=== PATIENT | male | born 1950 | race Caucasian/White ===

== ENCOUNTER 2018-04-20 15:53 | Inpatient (IN) | payer MEDICARE, MEDICAID ==
[2018-04-20] MEDS ORDERED: Haloperidol Lactate 5 mg/mL 1mL Vial IM STA (16:08)
[2018-04-20] MEDS ORDERED: Haloperidol Lactate 5 mg/mL 1mL Vial ONE (16:11)
--- NOTE | 2018-04-20 16:40 | ED Physician Chart ---
ED Chief Complaint/HPI - Patient Information Date Seen:: 04/20/18 Time Seen:: 16:00 Chief Complaint:: Agitation History of Present Illness:: onset x one day of agitation and combative/hostile behavior; no rreport of trauma, SIs, H/As, LOC, S/T, neck pain, C/P, SOB, Abd. Pain, A/N/V/D/C, fever, chills, or urinary s/s Allergies:: Allergies Allergy/AdvReac Type Severity Reaction Status Date / Time UNOBTN - Unobtainable Allergy Verified 04/20/18 16:23 Historian:: Patient, EMS Review:: Nurse's Note Reviewed, EMS run form Reviewed ED Review of Systems - Review of Systems General/Constitutional: No fever, No chills, No weight loss, No weakness, No diaphoresis, No edema, No loss of appetite Skin: No skin lesions, No rash, No bruising Head: No headache, No light-headedness Eyes: No loss of vision, No pain, No diplopia ENT: No earache, No nasal drainage, No sore throat, No tinnitus Neck: No neck pain, No swelling, No thyromegaly, No stiffness, No mass noted Cardio Vascular: No chest pain, No palpitations, No PND, No orthopnea, No edema Pulmonary: No SOB, No cough, No sputum, No wheezing GI: No nausea, No vomiting, No diarrhea, No pain, No melena, No hematochezia, No constipation, No hematemesis G/U: No dysuria, No frequency, No hematuria, No nacturia Musculoskeletal: No bone or joint pain, No back pain, No muscle pain Endocrine: No polyuria, No polydipsia Psychiatric: Prior psych history, No depression, Anxiety, No suicidal ideation, No homicidal ideation, No auditory hallucination, No visual hallucination Hematopoietic: No bruising, No lymphadenopathy Allergic/Immuno: No urticaria, No angioedema Neurological: No syncope, No focal symptoms, No weakness, No paresthesia, No headache, No seizure, No dizziness, No confusion, No vertigo ED Past Medical History - Past Medical History Obtainable: Yes Past Medical History: HTN Family History: HTN Social History: Smoker, Alcohol, No Drug Use, Single, Homeless Surgical History: None Psychiatricy History: Bipolar Medication: Reviewed Family Medical History - Family Member Mother History Unknown: Yes ED Physical Exam - Physical Examination General/Constitutional: Awake, Well-developed, well-nourished, Alert, No distress, GCS 15, Non-toxic appearing, Ambulatory Head: Atraumatic Eyes: Lids, conjuctiva normal, PERRL, EOMI Skin: Nl inspection, No rash, No skin lesions, No ecchymosis, Well hydrated, No lymphadenopathy ENMT: External ears, nose nl, TM canals nl, Nasal exam nl, Lips, teeth, gums nl , Oropharynx nl, Tonsils nl Neck: Nontender, Full ROM w/o pain, No JVD, No nuchal rigidity, No bruit, No mass, No stridor Respiratory: Nl effort/Exclusion, Clear to Auscultation, No Wheeze/Rhonchi/Rales Cardio Vascular: RRR, No murmur, gallop, rubs, NL S1 S2, Carotid/Femoral/Distal pulses equal bilaterally GI: No tenderness/rebounding/guarding, No organomegaly, No hernia, Normal BS's, Nondistended, No mass/bruits, No McBurney tenderness : No CVA tenderness Extremities: No tenderness or effusion, Full ROM, normal strength in all extremities, No edema, Normal digits & nails Neuro/Psych: Alert/oriented, DTR's symmetric, Normal sensory exam, Normal motor strength, Judgement/insight normal, Mood normal, Normal gait, No focal deficits Other Neuro/Psych comments:: + Psychomotor Agitation; no SIs; Mood/Affect: Labile Misc: Normal back, No paraspinal tenderness ED Labs/Radiology/EKG Results - Lab Results Comments:: unremarkable - EKG Interpretations Rate & Rhythm: NSR Comments:: non-specific st-t changes ED Septic Shock - . Is Septic Shock (SBP<90, OR Lactate>4 mmol\L) present?: No ED Reassessment (Disposition) - Reassessment Reassessment Condition:: Improved - Diagnosis Diagnosis:: Dx: Agitation; Anxiety Disorder; Psychosis; Medical Clearance; Bipolar Disorder - Aftercare/Follow up Instructions Aftercare/Follow-Up Instructions:: Counseled pt regarding lab results/diagnosis & need follow up, Counseled pt & family regarding lab results/diagnosis & need follow up - Patient Disposition Discharge/Transfer:: Acute Care w/in this hosp Admitted to:: [facility] Condition at Disposition:: Stable, Improved
[2018-04-20 17:32] LABS: % BASOPHILS 1.3 % (0.0-2.0); % LYMPHOCYTES 18.3 % (20.0-50.0); % MONOCYTES 9.3 % (2.0-10.0); % NEUTROPHILS 70.1 % (40.0-80.0); BASOPHILE ABSOLUTE 0.1 Th/cumm (0-0.2); HEMATOCRIT 37.9 % (41.0-60); HEMOGLOBIN 12.3 gm/dL (12-16); LYMPHOCYTE ABSOLUTE 0.8 Th/cmm (1.5-3.0); MEAN CELL VOLUME 83.3 fl (80-99); MEAN CORPUSCULAR HGB CONC 32.4 pg (28.0-36.0); MONOCYTE ABSOLUTE 0.4 Th/cmm (0.3-1.0); PLATELET COUNT 280 Th/cmm (150-400); RED BLOOD COUNT 4.55 Mil/cmm (3.80-5.80); RED CELL DISTRIBUTION WIDTH 13.2 % (11.5-20.0); WHITE BLOOD COUNT 4.3 Th/cmm (4.8-10.8)
[2018-04-20 17:52] LABS: ALB/GLOB RATIO 0.9 (1.0-1.8); ALBUMIN 3.9 gm/dL (4.2-5.5); ALKALINE PHOSPHATASE 104 U/L (34-104); ANION GAP 10.2 (7.0-16.0); BILIRUBIN,TOTAL 0.5 mg/dL (0.3-1.0); BUN - UREA NITROGEN 18 mg/dL (7-25); CALCIUM SERUM 9.8 mg/dL (8.6-10.3); CARBON DIOXIDE 28.6 mEq/L (21.0-31.0); CHLORIDE 104 mEq/L (98-107); CHOLESTEROL 133 mg/dL (<200); GFR AFRICAN-AMERICAN > 60.0 ml/min (>90); GFR NON AFRICAN-AMERICAN > 60.0 ml/min; GLUCOSE 92 mg/dL (70-105); HDL -HIGH DENSITY LIPOPROTEIN 37 mg/dL (23-92); POTASSIUM SERUM 3.8 mEq/L (3.5-5.1); SALICYLATES (ASPIRIN) < 25.0 mg/L (30.0-100.0); SGOT 25 U/L (13-39); SGPT/ALT 11 U/L (7-52); SODIUM SERUM 139 mEq/L (136-145); TOTAL PROTEIN,SERUM 8.1 gm/dL (6.0-8.3); TRIGLYCERIDES 124 mg/dL (<150)
[2018-04-20 17:53] LABS: ACETAMINOPHEN < 10.0 ug/mL (10.0-30.0)
[2018-04-20 19:43] LABS: A1C % 4.9 % (4.0-6.0)
[2018-04-20 23:01] VITALS: BP 94/52
[2018-04-20] MEDS ORDERED: Maalox 30 mL Cup PO PRN (23:08)
[2018-04-20] MEDS ORDERED: Magnesium Hydroxide (MOM) 30 mL UDC PO PRN (23:08)
[2018-04-21] MEDS ORDERED: Haloperidol Lactate 5 mg/mL 1mL Vial ONE (07:32)
[2018-04-21] MEDS ORDERED: Haloperidol Lactate 5 mg/mL 1mL Vial IM ONE (07:50)
[2018-04-21] MEDS: Multivitamin Tab PO SCH (09:14)
--- NOTE | 2018-04-21 23:04 | Psychiatric Evaluation ---
DATE OF SERVICE: THE PATIENT'S AGE: 67. SEX: Male. PHYSICIAN: Dr. Delatorre. CHIEF COMPLAINT: 5150 hold for dangers to self and grave disability. HISTORY OF PRESENT ILLNESS: The patient is a 67-year-old male, who was placed on a 5150 hold by the police for dangers to self and gravely disabled. The patient was pushing himself in the middle of a busy street regardless his safety. The patient also has been confused and guarded and unable to provide any safe plan for self-care. The patient has history of bipolar disorder. Apparently, the patient has not been compliant with taking his medications. PAST PSYCHIATRIC HISTORY: History of bipolar disorder. PAST MEDICAL HISTORY: The patient has history of hypertension. SOCIAL HISTORY: The patient is homeless. Unable to get more information from the patient at this time. ALLERGIES: No known allergies. MENTAL STATUS EXAMINATION: The patient appears older than stated age. Disheveled. On wheelchair. Disorganized thoughts. Guarded. Preoccupied. Unable to get much information from the patient at this time because the patient is guarded and irritable mood. ASSESSMENT: Bipolar disorder, severe, depressed episode, with psychotic features. MEDICAL DIAGNOSIS: Hypertension. TREATMENT PLAN: We will monitor the patient's behavior and condition closely. We will evaluate for starting psychotropic medications. Also, try to get more information when more cooperative. ESTIMATED LENGTH OF STAY: 5-7 days. THE PATIENT'S STRENGTHS AND WEAKNESSES: The patient's strength is not clear at this time. Weaknesses is his ineffective coping and seems like he is not compliant with taking his treatment. AFTER DISCHARGE PLAN: Outpatient treatment and followup will continue as an outpatient. CRITERIA FOR DISCHARGE: We will secure placement and also will stabilize psychotropic medications and we have safe plan for his discharge. JOB# [id number]
[2018-04-22] MEDS: Levothyroxine 0.05 Mg Tab PO SCH (06:55)
[2018-04-22] MEDS: Multivitamin Tab PO SCH (10:00)
--- NOTE | 2018-04-22 23:18 | Progress Notes ---
DATE: SUBJECTIVE: Chart reviewed and the patient interviewed. Also discussed the patient's condition with the staff and reviewed records and labs. The patient is still easily agitated and aggressive. The patient also had unpredictable behavior. Also is still angry and resisting care. Also, personal hygiene is still poor and disheveled. The patient also is guarded and does not disclose much information about himself. At the same time, the patient was supposed to start on Seroquel, but the patient refused to take Seroquel last night. ASSESSMENT: The patient is still psychotic and agitated. TREATMENT PLAN: Continue to monitor his behavior and his condition closely. Also, continue to work on his compliance with taking his medications. Also, continue to work on knowing more about the patient in order to organize discharge plans. He is still considered to be dangerous to others and self as well as gravely disabled. JOB# [id number]
[2018-04-23] MEDS: Levothyroxine 0.05 Mg Tab PO SCH (06:37)
[2018-04-23] MEDS: Multivitamin Tab PO SCH (09:17)
[2018-04-23] MEDS: Venelex 60gm Tube TP SCH (09:18)
--- NOTE | 2018-04-23 11:57 | History & Physical ---
ADMIT DATE: 04/20/2018 ADMITTING PHYSICIAN: Dr. Delatorre. REASON FOR ADMISSION: Psychiatric disorder. HISTORY OF PRESENT ILLNESS: This is a 67-year-old with underlying history of hypothyroidism, mental health disorders who was admitted for evaluation of underlying psychiatric illness by Dr. Delatorre. Dr. Delatorre requested medical H and P on this patient. The patient said that he is doing fine. Denies any complaints. PAST MEDICAL HISTORY: Hypothyroidism. PAST SURGICAL HISTORY: Denies. FAMILY HISTORY: No significant family history. SOCIAL HISTORY: No reported alcohol, tobacco or street drug use. CURRENT MEDICATIONS: Maalox, Synthroid, Ativan, milk of mag, Theragran, Seroquel, and Ambien. REVIEW OF SYSTEMS: As per HPI. Twelve-point system review appears negative. PHYSICAL EXAMINATION: VITAL SIGNS: Temperature 97.8, pulse 70, respiration 19, blood pressure 138/72, oxygen saturation 94% on room air. Pain 0/10. GENERAL APPEARANCE: The patient was sitting comfortably in the bed. HEART: S1, S2 normal. LUNGS: Clear. ABDOMEN: Soft. EXTREMITIES: No edema. Right foot superficial wound noted. No surrounding erythema noted. No discharge. LABORATORY DATA: Available lab data has been reviewed. ASSESSMENT: 1. Hypothyroidism. 2. Right foot wound. 3. Psychiatric disorder. PLAN: The patient will be continued on levothyroxine. Daily local wound care will be given. Psych evaluation and management per psychiatrist. The patient is medically stable to participate in activities at [facility]. Thank you Dr. Delatorre for allowing me to participate in the care of this patient. [facility]# [id number]
--- NOTE | 2018-04-23 20:02 | Progress Notes ---
DATE: 04/23/2018 SUBJECTIVE: Chart reviewed and the patient interviewed. Also discussed the patient's condition with the staff and reviewed records and labs. The patient is still easily agitated. The patient also is still unpredictable. The patient also minimizing the fact that he was wheeling his wheelchair in the middle of a busy street regardless his safety and the safety of others. The patient also is still angry and disheveled. When I tried to talk to the patient about placement condition, he became angry and he said that he is going to stay with a friend, but he was not able to give any more information about a friend or about where he is. At the same time, the patient started on Seroquel 50 mg twice a day with no side effects. ASSESSMENT: The patient is still psychotic and still can be dangerous to self and others. TREATMENT PLAN: Continue monitoring his behavior and his condition closely. Also, continue working on his poor impulse control and his irritability and we will continue to follow up. [facility]# [id number]
[2018-04-23 23:11] LABS: URINE BILIRUBIN NEGATIVE (NEGATIVE); URINE BLOOD LARGE (NEGATIVE); URINE GLUCOSE (UA) NEGATIVE (NEGATIVE); URINE KETONE NEGATIVE (NEGATIVE); URINE LEUKOCYTE ESTERASE LARGE (NEGATIVE); URINE MICROSCOPIC INDICATED? YES; URINE NITRATE POSITIVE (NEGATIVE); URINE PROTEIN 30 mg/dL (NEGATIVE); URINE SOURCE CLEAN C; URINE UROBILINOGEN 0.2 E.U./dL (0.2 - 1.0)
[2018-04-23 23:28] LABS: URINE CLARITY CLOUDY (CLEAR); URINE COLOR YELLOW
[2018-04-23 23:29] LABS: URINE RBC 25-50 /hpf (0-5)
[2018-04-23 23:33] LABS: URINE BACTERIA MANY /hpf (NONE SEEN); URINE EPITHELIAL CELLS FEW /lpf (FEW); URINE WBC 50-100 /hpf (0-5)
[2018-04-23 23:37] LABS: AMPHETAMINE URINE NEGATIVE (NEGATIVE); BARBITURATES URINE NEGATIVE (NEGATIVE); BENZODIAZEPINES QUAL URINE POSITIVE (NEGATIVE); CANNABINOID THC NEGATIVE (NEGATIVE); COCAINE METABOLITE QUAL URINE NEGATIVE (NEGATIVE); METHADONE URINE NEGATIVE (NEGATIVE); METHAMPHETAMINES QUAL URINE NEGATIVE (NEGATIVE); OPIATES (MORPHINE) QUAL. URINE NEGATIVE (NEGATIVE); PHENCYCLIDINE (PCP) URINE NEGATIVE (NEGATIVE); TRICYCLICS (TCA) QUAL. URINE NEGATIVE (NEGATIVE)
[2018-04-24] MEDS: Levothyroxine 0.05 Mg Tab PO SCH (06:43)
[2018-04-24] MEDS: Venelex 60gm Tube TP SCH (09:36)
[2018-04-24] MEDS: Multivitamin Tab PO SCH (09:36)
--- NOTE | 2018-04-24 23:36 | Progress Notes ---
DATE: 04/24/2018 SUBJECTIVE: Chart reviewed and the patient interviewed. Also discussed the patient's condition with the staff and reviewed records and labs. The patient continued to have unpredictable behavior and easily agitated. The patient also is still in irritable and in angry mood. The patient also is still uncooperative and he is still rambling. He also still needs lots of redirections. The patient also is still unable to give information about discharge plans and placement issue and still seems that he wants to be homeless. The patient also is refusing to take his Seroquel in the p.m. time in spite of trying to explain to the patient the importance of taking his medications. ASSESSMENT: The patient is still agitated and in irritable mood and seems to be psychotic. TREATMENT PLAN: Continue to monitor his behavior and his condition closely. Also, continue monitoring his psychotropic medications and work on discharge plans. JOB# [id number]
[2018-04-25] MEDS: Levothyroxine 0.05 Mg Tab PO SCH (06:43)
[2018-04-25] MEDS: Venelex 60gm Tube TP SCH (08:03)
[2018-04-25] MEDS: Multivitamin Tab PO SCH (08:03)
--- NOTE | 2018-04-26 03:35 | Progress Notes ---
DATE: 04/25/[address] Delatorre. SUBJECTIVE: Case was discussed with staff of the patient, reviewed records. This is a 68-year-old male who was admitted on 04/20/2018, because of agitated behavior, unpredictable and impulsive, needing redirection. Continues to have poor insight, continues to be easily agitated, angry, confused. No sedation, no nausea. No side effects with the medication and we will continue the patient in group therapy, milieu therapy, and adjust medication as needed. JOB# [id number]
[2018-04-26] MEDS: Levothyroxine 0.05 Mg Tab PO SCH (06:56)
[2018-04-26] MEDS: Multivitamin Tab PO SCH (08:13)
[2018-04-26] MEDS: Venelex 60gm Tube TP SCH (08:13)
--- NOTE | 2018-04-27 00:48 | Progress Notes ---
DATE: 04/26/[address] Delatorre. Case was discussed with staff of the patient, reviewed records and labs. The patient continues to be unpredictable, impulsive, agitated, irritable, angry, uncooperative, rambling speech. Unable to formulate a safe plan for self-care. Working on placement for this patient. Continues to be agitated, unpredictable. No side effects of the medication. No sedation, no nausea, no extrapyramidal symptoms and he is on Seroquel 100 mg twice a day and will continue the patient in group therapy, milieu therapy, and adjust medications as needed. JOB# [id number]
[2018-04-27] MEDS: Levothyroxine 0.05 Mg Tab PO SCH (06:46)
[2018-04-27] MEDS: Multivitamin Tab PO SCH (08:57)
[2018-04-27] MEDS: Venelex 60gm Tube TP SCH (08:57)
[2018-04-28] MEDS: Levothyroxine 0.05 Mg Tab PO SCH (06:45)
[2018-04-28] MEDS: Venelex 60gm Tube TP SCH (08:06)
[2018-04-28] MEDS: Multivitamin Tab PO SCH (08:06)
[2018-04-28] MEDS ORDERED: Haloperidol Lactate 5 mg/mL 1mL Vial IM ONE (09:43)
[2018-04-28] MEDS ORDERED: Haloperidol Lactate 5 mg/mL 1mL Vial ONE (09:45)
--- NOTE | 2018-04-28 10:13 | Progress Notes ---
DATE: 04/27/2018 PSYCHIATRIC PROGRESS NOTE SUBJECTIVE: Chart reviewed and the patient interviewed. Also, discussed the patient's condition with the staff and reviewed records and labs. The patient is still in angry mood and he is still guarded and does not answer most of my questions. Also, still easily agitated. The patient also slept only 6 hours last night. Also, is still argumentative and refusing to take medications. Also, patient is uncooperative in regard to discharge plans and placement issue. ASSESSMENT: The patient is still psychotic and uncooperative. TREATMENT PLAN: Continue to monitor his behavior and his condition closely. Also, continue to work on his ineffective coping and discharge plans. JOB# [id number]
[2018-04-29] MEDS: Levothyroxine 0.05 Mg Tab PO SCH (06:36)
[2018-04-29] MEDS ORDERED: Haloperidol Lactate 5 mg/mL 1mL Vial ONE (07:45)
[2018-04-29] MEDS ORDERED: Haloperidol Lactate 5 mg/mL 1mL Vial IM ONE (08:01)
[2018-04-29] MEDS: Venelex 60gm Tube TP SCH (09:56)
[2018-04-29] MEDS: Multivitamin Tab PO SCH (09:56)
--- NOTE | 2018-04-29 19:15 | Progress Notes ---
DATE: SUBJECTIVE: Chart reviewed and the patient interviewed. Also discussed the patient's condition with the staff and reviewed the records and labs. The patient continued to be extremely irritable and extremely agitated. The patient also still have unpredictable behavior. The patient also is still in angry and in irritable mood. He also has not been able to follow staff directions. Also refused to take his medications. At the same time, the patient is unable to provide any safe plan for self-care. He also uncooperative in regard to discharge plans and placement issue. ASSESSMENT: The patient is still agitated and is still in irritable moods and uncooperative. TREATMENT PLAN: Continue to monitor his behavior closely. Also, continue to work with pillowcase maker in regard to discharge plans and placement issue. JOB# [id number]
[2018-04-30] MEDS: Levothyroxine 0.05 Mg Tab PO SCH (06:42)
[2018-04-30] MEDS: Venelex 60gm Tube TP SCH (08:09)
[2018-04-30] MEDS: Multivitamin Tab PO SCH (08:09)
--- NOTE | 2018-04-30 19:23 | Progress Notes ---
DATE: 04/30/[address] Delatorre. Case was discussed with staff of the patient and reviewed records. This is a well-known case to me. I have seen him before covering for Dr. Delatorre. The patient has been ____. He is in a wheelchair. He will not answer any of my questions. ____. The patient continues to be very extremely irritable, impulsive, unpredictable, not participating, not taking his medications. It is hard to adjust his medication as he is not taking it. He may need to be ____. We will continue the patient in group therapy, milieu therapy, and adjust medication as needed. JOB# [id number]
[2018-05-01] MEDS: Levothyroxine 0.05 Mg Tab PO SCH (07:07)
[2018-05-01] MEDS: Venelex 60gm Tube TP SCH (08:09)
[2018-05-01] MEDS: Multivitamin Tab PO SCH (08:09)
--- NOTE | 2018-05-01 08:29 | Progress Notes ---
DATE: 04/26/2018 SUBJECTIVE: Chart reviewed and the patient interviewed. Also discussed the patient's condition with the staff and reviewed records and labs. The patient continue to be in angry and in irritable mood. The patient also has unpredictable behavior and he is still paranoid and restless. The patient is uncooperative with myself, staff, or the disability case manager especially in regards to discharge plans. Also, personal hygiene is still poor. The patient is disheveled. Also, resisting care. ASSESSMENT: The patient is still psychotic and agitated. TREATMENT PLAN: The patient is still refusing to take any psychotropic medications and I advised the patient to take psychotropic medications. Also, work with disability case manager in regard to discharge plans and placement issue. JOB# [id number]
--- NOTE | 2018-05-01 20:19 | Progress Notes ---
DATE: 05/01/2018 Case was discussed with staff of the patient, reviewed records. Medication list, ____ medication. The patient continues to be selectively mute, not answering questions. Continues to be unable to tell me why he is not taking his medication, unpredictable, impulsive, needing redirection. He is still at a high risk. He is on a wheelchair. He is at fall risk. No side effects, not taking medication. He may need to be ____. We will continue outpatient group therapy, milieu therapy, and adjust medication as needed. The patient is in wheelchair. He is at fall risk. JOB# [id number]
[2018-05-02] MEDS: Levothyroxine 0.05 Mg Tab PO SCH (06:48)
--- NOTE | 2018-05-02 07:14 | Progress Notes ---
DATE: SUBJECTIVE: Chart reviewed and the patient interviewed. Also discussed the patient's condition with the staff and reviewed records and labs. The patient is still paranoid and depressed. The patient also is still withdrawn and agitated easily and wants to be left alone. The patient also is guarded. He is still unable to provide any safe plan for self care. The patient also is still refusing to take medications and he is minimizing and in denial of his psych problems. ASSESSMENT: The patient is still psychotic and considered to be gravely disabled. TREATMENT PLAN: Continue monitoring his behavior and continue to work with pillowcase cleaner in regard to discharge plans. Also working with the patient in regard to his compliance with taking his medications and hopefully the patient will start to take his medications. JOB# [id number]
[2018-05-02] MEDS: Venelex 60gm Tube TP SCH (08:10)
[2018-05-02] MEDS: Multivitamin Tab PO SCH (08:10)
[2018-05-03] MEDS: Levothyroxine 0.05 Mg Tab PO SCH (06:43)
--- NOTE | 2018-05-03 07:33 | Progress Notes ---
DATE: SUBJECTIVE: Chart reviewed and the patient interviewed. Also discussed the patient's condition with the staff and reviewed records and labs. The patient continued to be delusional and paranoid. The patient also is still withdrawn. The patient also is resisting care at times and the patient is still refusing to take medications. Also, is still uncooperative with the staff and care discharge plan in regard to trying to get him a place and he just wanted to live in the streets. The patient also still needs lots of redirections. ASSESSMENT: The patient is still psychotic and needs lots of redirections and considered to be gravely disabled. TREATMENT PLAN: Continue to work on discharge plans and placement issue as well as his compliance with taking his medications. JOB# [id number]
[2018-05-03] MEDS: Venelex 60gm Tube TP SCH (08:00)
[2018-05-03] MEDS: Multivitamin Tab PO SCH (08:00)
[2018-05-04] MEDS: Levothyroxine 0.05 Mg Tab PO SCH (06:36)
[2018-05-04] MEDS: Venelex 60gm Tube TP SCH (10:00)
[2018-05-04] MEDS: Multivitamin Tab PO SCH (10:00)
--- NOTE | 2018-05-05 01:33 | Progress Notes ---
DATE: 05/04/2018 SUBJECTIVE: Chart reviewed and the patient interviewed. Also discussed the patient's condition with the staff and reviewed records and labs. The patient is still resisting care and is still in angry and in irritable mood. The patient also is still refusing to take his psychotropic medications. Also, is still angry and he is still minimizing his problems and uncooperative in regard to placement issue and discharge plans. At the same time, case folder is trying to find placement for the patient and the patient does not want to go anyplace and want to be homeless. ASSESSMENT: The patient is still agitated and is still psychotic. TREATMENT PLAN: Continue monitoring his behavior and his condition closely. Also, continue to work on discharge plans and placement issue. Also, continue to work on his compliance taking his medications because the patient is still refusing to take any psychotropic medications. JOB# [id number]
[2018-05-05] MEDS: Venelex 60gm Tube TP SCH (10:45)
[2018-05-05] MEDS: Levothyroxine 0.05 Mg Tab PO SCH (10:45)
[2018-05-05] MEDS: Multivitamin Tab PO SCH (10:45)
--- NOTE | 2018-05-05 11:19 | General Progress Note ---
Subjective - Review of Systems Service Date: 05/03/18 Subjective: Patient doing fine no new concern reported Objective - Results Result Diagrams: 04/20/18 17:25 04/20/18 17:25 Recent Labs: Laboratory Last Values WBC 4.3 Th/cmm (4.8-10.8) L 04/20/18 17:25 RBC 4.55 Mil/cmm (3.80-5.80) 04/20/18 17:25 Hgb 12.3 gm/dL (12-16) 04/20/18 17:25 Hct 37.9 % (41.0-60) L 04/20/18 17:25 MCV 83.3 fl (80-99) 04/20/18 17:25 MCH 27.0 pg (27.0-31.0) 04/20/18 17:25 MCHC Differential 32.4 pg (28.0-36.0) 04/20/18 17:25 RDW 13.2 % (11.5-20.0) 04/20/18 17:25 Plt Count 280 Th/cmm (150-400) 04/20/18 17:25 MPV 8.0 fl 04/20/18 17:25 Neutrophils % 70.1 % (40.0-80.0) 04/20/18 17:25 Lymphocytes % 18.3 % (20.0-50.0) L 04/20/18 17:25 Monocytes % 9.3 % (2.0-10.0) 04/20/18 17:25 Eosinophils % 1.0 % (0.0-5.0) 04/20/18 17:25 Basophils % 1.3 % (0.0-2.0) 04/20/18 17:25 Sodium 139 mEq/L (136-145) 04/20/18 17:25 Potassium 3.8 mEq/L (3.5-5.1) 04/20/18 17:25 Chloride 104 mEq/L (98-107) 04/20/18 17:25 Carbon Dioxide 28.6 mEq/L (21.0-31.0) 04/20/18 17:25 Anion Gap 10.2 (7.0-16.0) 04/20/18 17:25 BUN 18 mg/dL (7-25) 04/20/18 17:25 Creatinine 1.0 mg/dL (0.7-1.3) 04/20/18 17:25 Est GFR ( Amer) > 60.0 ml/min (>90) 04/20/18 17:25 Est GFR (Non-Af Amer) > 60.0 ml/min 04/20/18 17:25 BUN/Creatinine Ratio 18.0 04/20/18 17:25 Glucose 92 mg/dL (70-105) 04/20/18 17:25 Hemoglobin A1c % 4.9 % (4.0-6.0) 04/20/18 17:25 Calcium 9.8 mg/dL (8.6-10.3) 04/20/18 17:25 Total Bilirubin 0.5 mg/dL (0.3-1.0) 04/20/18 17:25 AST 25 U/L (13-39) 04/20/18 17:25 ALT 11 U/L (7-52) 04/20/18 17:25 Alkaline Phosphatase 104 U/L (34-104) 04/20/18 17:25 Troponin I < 0.01 ng/mL (0.01-0.05) L 04/20/18 17:25 Total Protein 8.1 gm/dL (6.0-8.3) 04/20/18 17:25 Albumin 3.9 gm/dL (4.2-5.5) L 04/20/18 17:25 Globulin 4.2 gm/dL 04/20/18 17:25 Albumin/Globulin Ratio 0.9 (1.0-1.8) L 04/20/18 17:25 Triglycerides 124 mg/dL (<150) 04/20/18 17:25 Cholesterol 133 mg/dL (<200) 04/20/18 17:25 LDL Cholesterol Direct 79 mg/dL (75-193) 04/20/18 17:25 HDL Cholesterol 37 mg/dL (23-92) 04/20/18 17:25 TSH 9.35 uIU/ml (0.34-5.60) H 04/20/18 17:25 Urine Source CLEAN C 04/23/18 22:50 Urine Color YELLOW 04/23/18 22:50 Urine Clarity CLOUDY (CLEAR) 04/23/18 22:50 Urine pH 7.0 (4.6 - 8.0) 04/23/18 22:50 Ur Specific [place] 1.015 (1.005-1.030) 04/23/18 22:50 Urine Protein 30 mg/dL (NEGATIVE) H 04/23/18 22:50 Urine Glucose (UA) NEGATIVE mg/dL (NEGATIVE) 04/23/18 22:50 Urine Ketones NEGATIVE mg/dL (NEGATIVE) 04/23/18 22:50 Urine Blood LARGE (NEGATIVE) H 04/23/18 22:50 Urine Nitrate POSITIVE (NEGATIVE) H 04/23/18 22:50 Urine Bilirubin NEGATIVE (NEGATIVE) 04/23/18 22:50 Urine Urobilinogen 0.2 E.U./dL (0.2 - 1.0) 04/23/18 22:50 Ur Leukocyte Esterase LARGE (NEGATIVE) H 04/23/18 22:50 Urine RBC 25-50 /hpf (0-5) H 04/23/18 22:50 Urine WBC 50-100 /hpf (0-5) H 04/23/18 22:50 Ur Epithelial Cells FEW /lpf (FEW) 04/23/18 22:50 Urine Bacteria MANY /hpf (NONE SEEN) H 04/23/18 22:50 Salicylates < 25.0 mg/L (30.0-100.0) L 04/20/18 17:25 Urine Opiates Screen NEGATIVE (NEGATIVE) 04/23/18 22:50 Urine Methadone Screen NEGATIVE (NEGATIVE) 04/23/18 22:50 Acetaminophen < 10.0 ug/mL (10.0-30.0) L 04/20/18 17:25 Ur Barbiturates Screen NEGATIVE (NEGATIVE) 04/23/18 22:50 Ur Tricyclics Screen NEGATIVE (NEGATIVE) 04/23/18 22:50 Ur Phencyclidine Scrn NEGATIVE (NEGATIVE) 04/23/18 22:50 Amphetamines Screen NEGATIVE (NEGATIVE) 04/23/18 22:50 U Methamphetamines Scrn NEGATIVE (NEGATIVE) 04/23/18 22:50 U Benzodiazepines Scrn POSITIVE (NEGATIVE) H 04/23/18 22:50 U Cocaine Metab Screen NEGATIVE (NEGATIVE) 04/23/18 22:50 U Cannabinoids Screen NEGATIVE (NEGATIVE) 04/23/18 22:50 Ethyl Alcohol < 10 mg/dL (0-10) 04/20/18 17:25 RPR NONREACTIVE (NONREACTIVE) 04/20/18 17:25 - Physical Exam Vitals and I&O: Vital Signs Temp 98.6 F 04/27/18 20:00 Pulse 57 04/27/18 20:00 Resp 18 05/01/18 20:00 BP 101/56 04/27/18 20:00 Pulse Ox 96 04/27/18 20:00 Intake & Output 05/04/18 05/05/18 05/05/18 18:59 06:59 18:59 Intake Total 120 Balance 120 Intake: Oral 120 Other: # Voids 2 # Bowel Movements 0 Active Medications: Current Medications Acetaminophen (Tylenol) 650 mg PO Q4H PRN PRN Reason: Mild Pain / Temp above 100 Stop: 06/19/18 23:07 Al Hydrox/Mg Hydrox/Simethicone (Maalox) 30 ml PO Q4H PRN PRN Reason: GI DISTRESS Stop: 06/19/18 23:07 [place] Oil/[place] Balsam/Trypsin (Venelex) 1 appl TP DAILY JAMIE Stop: 06/21/18 17:14 Last Admin: 05/05/18 10:45 Dose: Not Given Levothyroxine Sodium (Synthroid) 0.05 mg PO QDAC JAMIE Stop: 06/21/18 07:29 Last Admin: 05/05/18 10:45 Dose: Not Given Lorazepam (Ativan) 0.5 mg PO Q4HR PRN; Protocol PRN Reason: Anxiety/Agitation Stop: 05/20/18 23:07 Last Admin: 04/29/18 21:05 Dose: 0.5 mg Magnesium Hydroxide (Milk Of Magnesia) 30 ml PO HS PRN PRN Reason: Constipation Multivitamins/Vitamin C (Theragran) 1 tab PO DAILY JAMIE Stop: 06/20/18 08:59 Last Admin: 05/05/18 10:45 Dose: Not Given Quetiapine Fumarate (Seroquel) 100 mg PO BID JAMIE; Protocol Stop: 06/24/18 16:59 Last Admin: 05/05/18 10:46 Dose: Not Given Zolpidem Tartrate (Ambien) 5 mg PO HSMR1 PRN PRN Reason: Insomnia Stop: 06/19/18 23:07 Last Admin: 04/29/18 21:06 Dose: 5 mg Cardiovascular: Regular rate Lungs: Clear to auscultation Extremities: Other (right foot wound clean) Assessment/Plan - Assessment Assessment: Right foot wound Hypothyroidism Psych disorder - Plan Plan: Daily wound care Continue thyroid meds Psych follow up Nutritional Asmnt/Malnutr-PDOC - Dietary Evaluation Malnutrition Findings (Please click <Entered> for more info): Nutritional Asmnt/Malnutrition Start: 04/23/18 11: 07 Text: Status: Complete Freq: Protocol: Document 04/23/18 11:07 MMULLIVIA (Rec: 04/23/18 11:34 MMULLIVIA AGRAWAL- FN) Nutritional Asmnt/Malnutrition Patient General Information Diagnosis Agitated Pertinent Medical Hx/Surgical Hx Hypothyroidism Subjective Information Consult received for Right foot wounds. Per nursing notes , patient is homeless and selectively mute. Current Diet Order/ Nutrition Support Regular Patient / S.O Not Indicated Pertinent Medications maalox, synthroid, MOM, Theragran Pertinent Labs (04/20) albumin 3.9 Nutritional Hx/Data Height 1.75 m Height (Calculated Centimeters) 175.3 Current Weight (lbs) 68.039 kg Weight (Calculated Kilograms) 68.0 Weight (Calculated Grams) 03246.9 [place] Body Weight 160 % [place] Body Weight 93 Body Mass Index (BMI) 22.1 Recent Weight Change No Weight Status Approriate GI Symptoms GI Symptoms None Last BM none noted in EMR Difficult in: None Food Allergies No Cultural/Ethnic/Episcopal Belief None indicated Usual diet at home Unknown (patient homeless) Skin Integrity/Comment: Emigdio 15, Per skin notes ulcer on right dorsal foot, right fifth toal and non- blanchable redness on right lateral malleolus. Current %PO Good (75-100%) Estimated Nutritional Goals BEE in Kcals: Using Current wt Calories/Kcals/Kg 68kg Current body weight (25- 30 kcal/kg) Kcals Calculated 6219-1825 kcal/day Protein: Using Current wt Protein g/k-1.2 gm/kg (wounds) Protein Calculated ~70-80 gm/day Fluid: ml 9124-6411 ml/day (1 ml/kcal) Nutritional Problem 1. Problem Problem Increased nutrient needs related to Etiology impaired skin integrity aeb Signs/Symptoms: ulcer on right dorsal foot, right fifth toal and non- blanchable redness on right lateral malleolus Intervention/Recommendation Comments 1. Continue regular diet as tolerated by patient. Current diet order and intake adequate to meet nutrient needs. 2. Continue multivitamin as prescribed, consider adding vitamin C to optimize wound healing. Expected Outcomes/Goals Expected Outcomes/Goals oral intake to meet >75% of nutrient needs, weight stable, nutrition related labs WNL
[2018-05-06] MEDS: Venelex 60gm Tube TP SCH (08:47)
[2018-05-06] MEDS: Multivitamin Tab PO SCH (08:47)
--- NOTE | 2018-05-07 00:46 | Discharge Summary ---
DATE OF DISCHARGE: 05/05/2018 DATE OF ADMISSION: 04/20/2018 DATE OF DISCHARGE: 05/05/2018 AGE: 68 SEX: Male. PHYSICIAN: Dr. Delatorre. FINAL DIAGNOSIS AND PRIMARY DIAGNOSIS: Psychosis, not otherwise specified. REASON FOR HOSPITALIZATION: FOR HOSPITALIZATION: The patient was admitted to the hospital on 5150 hold for dangerous to self and behaviorally disabled. The patient was going in the middle of the street with his wheelchair and he was not able to provide any safe plan for his self-care. HOSPITAL COURSE: The patient continued to be irritable and agitated. The patient also continued to minimize his issues and his problems. The patient also was not cooperative in regard to trying to find placement for him and he was in angry and in irritable mood. He also was restless and he was not cooperative with taking medications or was giving any medications. He refused to take all his medications. Finally, ____ gradually have accepted the patient. The patient was not suicidal or homicidal and he was agreeable to help discharge the patient from the hospital and the patient to go to [facility]. Medical examination of the patient showed no major medical problems. ASSESSMENT AND PLAN: The patient is discharged from the hospital and went to [facility] with plans to follow him up there. OUTCOME AFTER DISCHARGE: Guarded because the patient is not compliant with taking his medications. [facility]# [id number]
[2018-05-07] MEDS: Levothyroxine 0.05 Mg Tab PO SCH (06:36)
[2018-05-07] MEDS ORDERED: Haloperidol Lactate 5 mg/mL 1mL Vial ONE (08:21)
[2018-05-07] MEDS ORDERED: Haloperidol Lactate 5 mg/mL 1mL Vial IM ONE (08:30)
[2018-05-07] MEDS: Venelex 60gm Tube TP SCH (12:16)
[2018-05-07] MEDS: Multivitamin Tab PO SCH (12:16)
--- NOTE | 2018-05-07 22:46 | Progress Notes ---
DATE: 05/06/2018 DATE OF SERVICE: 05/06/2018. SUBJECTIVE: Chart reviewed and the patient interviewed. Also discussed the patient's condition with the staff and reviewed records and labs. The patient is still anxious and he is still having episodes of agitation, but in general wanted to be left alone and stays by himself most of the time. The patient also still has episodes of irritability, but less than before. The patient did not leave yesterday to [facility] and still patient case manager is working on the possible admission to [facility] and supposedly trying to get approval from the conservator. Otherwise, the patient is denying any thoughts of suicide and/or homicide and easier to redirect him. JOB# [id number]
--- NOTE | 2018-05-07 22:59 | Progress Notes ---
DATE: 05/05/2018 SUBJECTIVE: Chart reviewed and the patient interviewed. Also, discussed the patient's condition with the staff and reviewed records and labs. The patient according to the case finisher is going to be discharged to [facility] and [facility] accepted the patient. auto care center manager is waiting for approval from his conservator. Discussed that with case finisher and she assured me that the patient has a conservator and they are trying to get his approval. I did dictate the discharge summary today for his discharge from the hospital, going to [facility] unless otherwise changes in the plans. The patient is still refusing medications and still has episodes of irritability, but no major behavior problems and agreeable to go to [facility]. JOB# [id number]
--- NOTE | 2018-05-08 02:44 | Progress Notes ---
DATE: 05/07/2018 The patient was brought back by the police, found near the hospital. He had left the unit. He AWOL. The patient irritable. Does not want to talk, fairly sunburned in some areas. Staff concerned he may escalate. I did fill out a 30-day hold for grave disability. We will monitor and follow up. Medications were noted. JOB# [id number]
[2018-05-08] MEDS: Levothyroxine 0.05 Mg Tab PO SCH (06:45)
--- NOTE | 2018-05-08 06:47 | Progress Notes ---
DATE: 05/07/2018 A 68-year-old male, placed on a hold by the police. Apparently was pushing himself in the middle of the street, noted to be confused at that time. History of bipolar. Dr. Delatorre attempted to discharge the patient. Discharge summary was put in yesterday, but apparently the patient did not leave the hospital. The patient slept for about 6 hours. The patient has been denying any thoughts of suicide to nursing staff. When I go to see the patient this morning, he is unfortunately not on the unit, concerns that he may have _AWOL'd___ or escaped the hospital. No [id number]-yu-tuzs contact. This is not a billable encounter. A code has been called to try to locate the patient. Staff is trying to locate the patient. JOB# [id number] [email or web address]
[2018-05-08] MEDS: Multivitamin Tab PO SCH (09:38)
[2018-05-08] MEDS: Venelex 60gm Tube TP SCH (09:38)
--- NOTE | 2018-05-08 17:35 | Progress Notes ---
DATE: SUBJECTIVE: The patient seen, chart reviewed, discussed with staff. The patient in the observation room where he did not speak with me. Poorly oriented. He is awake, but does not say anything to me. He was very upset yesterday, angry, required emergency medications yesterday, unruly, the patient in fact did AWOL from the facility. He was found on a nearby streets. The patient with behavior outburst, aggression. Currently on a 30-day hold, Haldol cocktail was administered over the past 24 hours. ASSESSMENT: The patient remains unruly, poor sleep, symptomatic, still aggressive, gravely disabled. PLAN: We will continue to monitor. We will titrate and adjust medications. [facility]# [id number]
[2018-05-09] MEDS: Levothyroxine 0.05 Mg Tab PO SCH (06:41)
[2018-05-09] MEDS: Multivitamin Tab PO SCH (13:04)
[2018-05-09] MEDS: Venelex 60gm Tube TP SCH (13:04)
--- NOTE | 2018-05-09 19:35 | Progress Notes ---
DATE: 05/09/2018 SUBJECTIVE: The patient is selectively mute. He is pretty irritable, does not want to answer any questions, "isn't there a right to privacy." Claims that community __hospital caused him to have a ___ stroke, wants to make contact in the community immediately. Remains impulsive, unpredictable, noncompliant with medications, easily agitated, tried to leave the hospital a few days ago, he in fact left, was picked up by police. ASSESSMENT: The patient is angry currently gravely disabled, concerns for his ability to care for himself, sometimes compliant with medications, other times not. The patient seems somewhat disoriented, but difficult to fully assess given that he is not really speaking with me, only talking about the community, only talking about a right to privacy. Medications were noted. We will continue to monitor, followup, adjust and titrate medications as tolerated. JOB# [id number] FRANKO
== END 2018-05-09 13:00 | DRG 885 ==
LOC: ER 15:53 → EDBD 20:24 → GERO2 20:24
PROVIDERS: ADMIT Psychiatry & Neurology Psychiatry; ATTEND Psychiatry & Neurology Psychiatry
DX: F31.5 Bipolar disorder, current episode depressed, severe, with psychotic features (principal); I10 Essential (primary) hypertension; E03.9 Hypothyroidism, unspecified; F17.210 Nicotine dependence, cigarettes, uncomplicated; S91.301A Unspecified open wound, right foot, initial encounter; Z82.49 Family history of ischemic heart disease and other diseases of the circulatory system; Z59.0 Homelessness
CPT/HCPCS: 36415-UA; 80053-TC; 80061-TC; 80307; 80320-TC; 80329-TC; 81001-TC; 83036-90; 84443-TC; 84484-TC; 85025-TC; 86592-TC; 87086-90; 93005; J1200; J1630; J2060; Z7610

== ENCOUNTER 2018-05-09 15:53 | Emergency (ER) | payer MEDICARE, MEDICAID ==
--- NOTE | 2018-05-09 16:09 | ED Physician Chart ---
ED Chief Complaint/HPI - Patient Information Date Seen:: 05/09/18 Time Seen:: 15:45 Chief Complaint:: ALOC History of Present Illness:: onset x one day of AMS, ALOC, and agitation with poor cooperation; no report of trauma, LOC, H/As, neck pain, C/P, SOB, Abd. Pain, A/N/V/D/C, fever, chills, SIs , or urinary s/s; pt's last tetanus shot: < 5 years Allergies:: Allergies Allergy/AdvReac Type Severity Reaction Status Date / Time No Known Allergies Allergy Verified 04/24/18 07:02 Historian:: Patient, EMS Review:: Nurse's Note Reviewed, Old Chart Reviewed, EMS run form Reviewed ED Review of Systems - Review of Systems General/Constitutional: No fever, No chills, No weight loss, No weakness, No diaphoresis, No edema, No loss of appetite Skin: No skin lesions, No rash, No bruising Head: No headache, No light-headedness Eyes: No loss of vision, No pain, No diplopia ENT: No earache, No nasal drainage, No sore throat, No tinnitus Neck: No neck pain, No swelling, No thyromegaly, No stiffness, No mass noted Cardio Vascular: No chest pain, No palpitations, No PND, No orthopnea, No edema Pulmonary: No SOB, No cough, No sputum, No wheezing GI: No nausea, No vomiting, No diarrhea, No pain, No melena, No hematochezia, No constipation, No hematemesis G/U: No dysuria, No frequency, No hematuria, No nacturia Musculoskeletal: No bone or joint pain, No back pain, No muscle pain Endocrine: No polyuria, No polydipsia Psychiatric: Prior psych history, Depression, Anxiety, No suicidal ideation, No homicidal ideation, No auditory hallucination, No visual hallucination Hematopoietic: No bruising, No lymphadenopathy Allergic/Immuno: No urticaria, No angioedema Neurological: No syncope, No focal symptoms, No weakness, No paresthesia, No headache, No seizure, No dizziness, Confusion, No vertigo ED Past Medical History - Past Medical History Past Medical History: HTN, Thyroid disorder, Dementia Family History: HTN Social History: Non Smoker, No Alcohol, No Drug Use, Single, Care Facility Surgical History: None Psychiatricy History: Bipolar, Dementia Medication: Reviewed Family Medical History - Family Member Mother History Unknown: Yes Father History Unknown: Yes ED Physical Exam - Physical Examination General/Constitutional: Awake, Well-developed, well-nourished, Alert, No distress, GCS 15, Non-toxic appearing, Ambulatory Head: Atraumatic Eyes: Lids, conjuctiva normal, PERRL, EOMI Skin: Nl inspection, No rash, No skin lesions, No ecchymosis, Well hydrated, No lymphadenopathy ENMT: External ears, nose nl, TM canals nl, Nasal exam nl, Lips, teeth, gums nl , Oropharynx nl, Tonsils nl Neck: Nontender, Full ROM w/o pain, No JVD, No nuchal rigidity, No bruit, No mass, No stridor Respiratory: Nl effort/Exclusion, Clear to Auscultation, No Wheeze/Rhonchi/Rales Cardio Vascular: RRR, No murmur, gallop, rubs, NL S1 S2, Carotid/Femoral/Distal pulses equal bilaterally GI: No tenderness/rebounding/guarding, No organomegaly, No hernia, Normal BS's, Nondistended, No mass/bruits, No McBurney tenderness, Rectum exam nl : No CVA tenderness Extremities: No tenderness or effusion, Full ROM, normal strength in all extremities, No edema, Normal digits & nails Neuro/Psych: Alert/oriented, DTR's symmetric, Normal sensory exam, Normal motor strength, Judgement/insight normal, Mood normal, Normal gait, No focal deficits Other Neuro/Psych comments:: Disoriented and Confused; + Psychomotor Agitation; no SIs; Mood/Affect: Labile Misc: Normal back, No paraspinal tenderness ED Labs/Radiology/EKG Results - EKG Interpretations EKG Time:: 16:14 Rate & Rhythm: 61; NSR Comments:: LVH; non-specific st-t changes ED Septic Shock - . Is Septic Shock (SBP<90, OR Lactate>4 mmol\L) present?: No ED Reassessment (Disposition) - Reassessment Reassessment Condition:: Improved - Diagnosis Diagnosis:: ALOC; AMS; Agitation; Dementia
== END 2018-05-10 14:30 | disposition left against medical advice (07) ==
LOC: ER 15:53
DX: R41.82 Altered mental status, unspecified (principal); F03.90 Unspecified dementia, unspecified severity, without behavioral disturbance, psychotic disturbance, mood disturbance, and anxiety; R45.1 Restlessness and agitation; I10 Essential (primary) hypertension
CPT/HCPCS: 93005; 94760; Z7502